=== PATIENT | female | born 1980 | race Caucasian/White ===

== ENCOUNTER 2019-01-07 15:57 | Emergency (ER) | payer BC ==
[~2019-01-07] VITALS: Ht 175.3 cm; Wt 86.0 kg
[2019-01-07] MEDS ORDERED: PREDNISONE 20MG TABLET PO ONE (18:15)
[2019-01-07 18:20] VITALS: BP 122/70
== END 2019-01-07 18:20 | disposition home or self-care (01) ==
LOC: ER 15:57
DX: R21 Rash and other nonspecific skin eruption (principal); R03.0 Elevated blood-pressure reading, without diagnosis of hypertension
CPT/HCPCS: 99283; J7512